=== PATIENT | male | born 1965 | race Caucasian/White ===

== ENCOUNTER 2016-06-10 10:49 | Day surgery (SDC) | payer BC ==
[2016-06-05 14:56] VITALS: BMI 32.1
[~2016-06-10 10:49] MED LIST: LACTATED RINGERS 1,000 ML IV SCH; LIDOCAINE 1% 20 ML VIAL (10MG/ML) FOR IV START INTRADERMA PRN
[2016-06-10 11:07] VITALS: RESP 16; TEMP 97.8
[2016-06-10] MEDS ORDERED: LIDOCAINE 1% INJ 10MG/ML (20 ML MDV) ONE (11:24)
[2016-06-10] MEDS ORDERED: PROPOFOL 10 MG/ML 20 ML VIAL IV ONE (11:24)
[2016-06-10] MEDS ORDERED: GLUCAGON 1 MG/ML VIAL ONE (11:24)
--- NOTE | 2016-06-10 11:33 | P.GSHP ---
History of Present Illness H&P Date: 06/10/16 Chief Complaint: Screening colonoscopy This a 51-year-old male referred from Dr. Haney. Patient rents today for screening colonoscopy. He denies a significant placed. He's never had a colonoscopy before. Patient is a known history of hemorrhoids. Past Medical History Past Medical History: Hyperlipidemia Additional Past Medical History / Comment(s): TREMORS, HX OF KIDNEY STONE. History of Any Multi-Drug Resistant Organisms: None Reported Past Surgical History: Back Surgery, Tonsillectomy Additional Past Surgical History / Comment(s): TONSILLS (CHILD), BACK SURGERY ( 2007), DENTAL WORK. Past Anesthesia/Blood Transfusion Reactions: No Reported Reaction, Motion Sickness Past Psychological History: No Psychological Hx Reported Smoking Status: Current every day smoker Past Alcohol Use History: Rare Additional Past Alcohol Use History / Comment(s): SMOKES 1PPD, SMOKING FOR 35 YRS. Past Drug Use History: None Reported - Past Family History Mother Family Medical History: No Reported History Medications and Allergies Home Medications Medication Instructions Recorded Confirmed Type Atorvastatin Calcium [Lipitor] 10 mg PO HS 06/05/16 06/10/16 History Krill Oil 700 mg PO DAILY 06/05/16 06/10/16 History Propranolol HCl [Propranolol HCl 60 mg PO BID 06/05/16 06/10/16 History ER] Allergies Allergy/AdvReac Type Severity Reaction Status Date / Time ibuprofen [From Motrin] AdvReac Severe Abdominal Verified 06/05/16 14:49 Pain Surgical - Exam Vital Signs Temp Pulse Resp BP Pulse Ox 97.8 F 70 16 140/79 100 06/10/16 11:02 06/10/16 11:02 06/10/16 11:02 06/10/16 11:02 06/10/16 11:02 - General well developed, well nourished - Eyes PERRL - ENT normal pinna - Neck no masses - Respiratory normal expansion - Cardiovascular Rhythm: regular - Abdomen Abdomen: soft, non tender Assessment and Plan Plan: We'll perform screening colonoscopy.
--- NOTE | 2016-06-10 12:09 | P.OP ---
Date of Procedure: 06/10/16 Preoperative Diagnosis: Screening colonoscopy Postoperative Diagnosis: Rectal polyp Sigmoid colon polyp Diverticulosis Procedure(s) Performed: Colonoscopy Anesthesia: MAC Surgeon: Ash Asencio Pathology: other (Colon polyp, rectal polyp) Condition: stable Disposition: PACU Description of Procedure: The patient's placed on the endoscopy table in the lateral position. He received IV sedation. Digital rectal exam was performed which revealed no abnormalities. The prostate was symmetric without nodules. The flexible colonoscope was then placed patient anus passed throughout the entire colon. The ileocecal valve visualized. There is scattered diverticula seen throughout the colon. The descending and transverse colon was examined there no polyps or tumors seen there a few scattered diverticula. In the descending colon was a few scattered diverticula. No polyps seen. The sigmoid colon there was a peduncular polyp through the snare. There was another polyp which was removed with the snare and forcep. In the rectum there was another polyp seen this removed with the snare and forcep. Scope was withdrawn for patient.
--- NOTE | 2016-06-10 12:16 | P.GSHP ---
History of Present Illness H&P Date: 06/10/16 Chief Complaint: GERD This a 51-year-old male from Dr. Mckeon. Patient has history of GERD with reflux esophagitis and Gonzalez's esophagus. Patient presents today for EGD. He 's had complaints of reflux. The patient currently sleeps in the upright position. - Constitutional Constitutional: Reports as per HPI Past Medical History Past Medical History: Hyperlipidemia Additional Past Medical History / Comment(s): TREMORS, HX OF KIDNEY STONE. History of Any Multi-Drug Resistant Organisms: None Reported Past Surgical History: Back Surgery, Tonsillectomy Additional Past Surgical History / Comment(s): TONSILLS (CHILD), BACK SURGERY ( 2007), DENTAL WORK. Past Anesthesia/Blood Transfusion Reactions: No Reported Reaction, Motion Sickness Past Psychological History: No Psychological Hx Reported Smoking Status: Current every day smoker Past Alcohol Use History: Rare Additional Past Alcohol Use History / Comment(s): SMOKES 1PPD, SMOKING FOR 35 YRS. Past Drug Use History: None Reported - Past Family History Mother Family Medical History: No Reported History Medications and Allergies Home Medications Medication Instructions Recorded Confirmed Type Atorvastatin Calcium [Lipitor] 10 mg PO HS 06/05/16 06/10/16 History Krill Oil 700 mg PO DAILY 06/05/16 06/10/16 History Propranolol HCl [Propranolol HCl 60 mg PO BID 06/05/16 06/10/16 History ER] Allergies Allergy/AdvReac Type Severity Reaction Status Date / Time ibuprofen [From Motrin] AdvReac Severe Abdominal Verified 06/05/16 14:49 Pain Surgical - Exam Vital Signs Temp Pulse Resp BP Pulse Ox 97.8 F 70 16 140/79 100 06/10/16 11:02 06/10/16 11:02 06/10/16 11:02 06/10/16 11:02 06/10/16 11:02 - General well developed - Eyes PERRL - ENT normal pinna - Neck no masses - Respiratory normal expansion - Cardiovascular Rhythm: regular - Abdomen Abdomen: soft, non tender Assessment and Plan Plan: GERD. We'll perform EGD.
[2016-06-10 12:25] VITALS: BP 113/74; PULSE 67
== END 2016-06-10 12:52 | disposition home or self-care (01) ==
LOC: ORWHC2ENDO 10:49
PROVIDERS: ATTEND Surgery
DX: Z12.11 Encounter for screening for malignant neoplasm of colon (principal); K63.5 Polyp of colon; K62.1 Rectal polyp; K57.30 Diverticulosis of large intestine without perforation or abscess without bleeding; E78.5 Hyperlipidemia, unspecified; F17.200 Nicotine dependence, unspecified, uncomplicated; Z88.6 Allergy status to analgesic agent
CPT/HCPCS: 88305; 45385; J1610; J2001; J2704; 45380; 99153

== ENCOUNTER 2016-12-23 08:51 | Day surgery (SDC) | payer BC ==
[2016-12-18 14:18] VITALS: BMI 32.8
[2016-12-23 09:12] VITALS: RESP 16; TEMP 97.9
[2016-12-23] MEDS ORDERED: PROPOFOL 10 MG/ML 20 ML VIAL IV ONE (10:37)
--- NOTE | 2016-12-23 10:56 | P.GSHP ---
History of Present Illness H&P Date: 12/23/16 Chief Complaint: History of colon polyps, rectal bleeding This a 51-year-old male who has had history of colon polyps. He's had some mild rectal bleeding. He presents today for colonoscopy. Past Medical History Past Medical History: Hyperlipidemia Additional Past Medical History / Comment(s): TREMORS, HX OF KIDNEY STONE, HX OF COLONOSCOPY WITH POLYP. History of Any Multi-Drug Resistant Organisms: None Reported Past Surgical History: Back Surgery, Tonsillectomy Additional Past Surgical History / Comment(s): TONSILLS (CHILD), BACK SURGERY, DENTAL WORK. Past Anesthesia/Blood Transfusion Reactions: No Reported Reaction Past Psychological History: No Psychological Hx Reported Smoking Status: Current every day smoker Past Alcohol Use History: Rare Additional Past Alcohol Use History / Comment(s): SMOKES 1PPD, SMOKING FOR 35 YRS. Past Drug Use History: None Reported - Past Family History Mother Family Medical History: No Reported History Medications and Allergies Home Medications Medication Instructions Recorded Confirmed Type Propranolol HCl [Propranolol HCl 60 mg PO DAILY 06/05/16 12/23/16 History ER] Krill Oil (Unknown Dose) 1 tab PO DAILY 12/18/16 12/23/16 History Allergies Allergy/AdvReac Type Severity Reaction Status Date / Time ibuprofen [From Motrin] AdvReac Severe Abdominal Verified 12/23/16 09:12 Pain Surgical - Exam Vital Signs Temp Pulse Resp BP Pulse Ox 97.9 F 73 16 129/83 95 12/23/16 09:11 12/23/16 09:11 12/23/16 09:11 12/23/16 09:11 12/23/16 09:11 - General well developed, no distress - Eyes PERRL - ENT normal pinna - Neck no masses - Respiratory normal expansion - Cardiovascular Rhythm: regular - Abdomen Abdomen: soft, non tender Assessment and Plan Plan: We'll perform colonoscopy
--- NOTE | 2016-12-23 11:07 | P.OP ---
Date of Procedure: 12/23/16 Preoperative Diagnosis: History of colon polyps GI bleed Postoperative Diagnosis: Mild diverticulosis Internal hemorrhoids Procedure(s) Performed: Colonoscopy Implants: Anesthesia: MAC Surgeon: Ash Asencio Pathology: none sent Condition: stable Disposition: PACU Indications for Procedure: Operative Findings: Description of Procedure: The patient was placed on the endoscopy table in the lateral position. He received IV sedation. Digital rectal exam was performed which revealed a few internal hemorrhoids. Flexible colonoscope was then placed patient anus passed throughout the entire colon. The ileocecal valve was visualized. The cecum, ascending and transverse colon appeared normal. In the descending; was a few scattered diverticuli. There no polyps or tumors seen. Scope was then brought back the rectum this appeared normal. Scope was withdrawn for patient.
[2016-12-23 11:37] VITALS: BP 126/80; PULSE 68
== END 2016-12-23 11:47 | disposition home or self-care (01) ==
LOC: ORWHC2ENDO 08:51
PROVIDERS: ATTEND Surgery
DX: K57.30 Diverticulosis of large intestine without perforation or abscess without bleeding (principal); K64.8 Other hemorrhoids; Z86.010 Personal history of colon polyps; F17.200 Nicotine dependence, unspecified, uncomplicated; R25.1 Tremor, unspecified; Z79.899 Other long term (current) drug therapy; Z88.6 Allergy status to analgesic agent
CPT/HCPCS: 45378; J2704

== ENCOUNTER 2023-10-16 08:20 | Day surgery (SDC) | payer OTHER ==
[2023-10-15 08:57] VITALS: BMI 29.2
[~2023-10-16 08:20] MED LIST changes: +LIDOCAINE 1% (10MG/ML) FOR IV START INTRADERMA PRN; -LIDOCAINE 1% 20 ML VIAL (10MG/ML) FOR IV START INTRADERMA PRN
[2023-10-16] MEDS: LACTATED RINGERS 1,000 ML IV ONE ×2 (09:12→09:41)
[2023-10-16 09:18] VITALS: TEMP 97.1
[2023-10-16] MEDS ORDERED: PROPOFOL 10 MG/ML 20 ML VIAL IV ONE (09:27)
--- NOTE | 2023-10-16 09:32 | P.GSHP ---
History of Present Illness H&P Date: 10/16/23 Chief Complaint: screening colonoscopy this is a 4-year-old male presents today for screening colonoscopy. Patient denies a significant GI complaints. Past Medical History Past Medical History: Hyperlipidemia Additional Past Medical History / Comment(s): TREMORS, HX OF KIDNEY STONE, HX OF COLONOSCOPY WITH POLYP. Takes Propranolol for sweating. History of Any Multi-Drug Resistant Organisms: None Reported Past Surgical History: Back Surgery, Tonsillectomy Additional Past Surgical History / Comment(s): BACK SURGERY, DENTAL WORK, He morrhoidectomy Past Anesthesia/Blood Transfusion Reactions: No Reported Reaction Smoking Status: Current every day smoker - Past Family History Mother Family Medical History: No Reported History Additional Family Medical History / Comment(s): Grandmother history of Black Lung Medications and Allergies Home Medications Medication Instructions Recorded Confirmed Type Propranolol HCl [Propranolol HCl 60 mg PO DAILY 06/05/16 10/15/23 History ER] Krill Oil (Unknown Dose) 1 tab PO DAILY 12/18/16 10/15/23 History Allergies Allergy/AdvReac Type Severity Reaction Status Date / Time ibuprofen [From Motrin] AdvReac Severe Abdominal Verified 10/16/23 08:47 Pain Surgical - Exam Vital Signs Temp Pulse Resp BP Pulse Ox 97.1 F L 67 20 148/73 99 10/16/23 08:48 10/16/23 08:48 10/16/23 08:48 10/16/23 08:48 10/16/23 08:48 - General well developed, well nourished, no distress - Eyes PERRL, normal ocular movement - ENT normal pinna - Neck no masses - Respiratory normal expansion - Cardiovascular Rhythm: regular - Abdomen Abdomen: soft, non tender Assessment and Plan Assessment: we'll perform screening colonoscopy.
--- NOTE | 2023-10-16 09:41 | P.OP ---
Date of Procedure: 10/16/23 Preoperative Diagnosis: screening colonoscopy Postoperative Diagnosis: mild diverticulosis Procedure(s) Performed: endoscopy Anesthesia: MAC Surgeon: Ash Asencio Pathology: none sent Condition: stable Disposition: PACU Description of Procedure: the patient's placed on the endoscopy table in the lateral position. He received IV sedation. Digital rectal exam was performed. This revealed no eabnormalities.d. The flexible colonoscope was then placed patient anus passed throughout the entire colon. The ileocecal valve was visualized. The cecum, ascending and transverse colon appeared normal. In the descending; there is mild diverticular changes. Scope was then brought back the rectum this appeared normal. Scope withdrawn for patient.
[2023-10-16 10:14] VITALS: BP 114/71; PULSE 57; RESP 14
== END 2023-10-16 10:11 | disposition home or self-care (01) ==
LOC: ORWHC2ENDO 08:20
PROVIDERS: ATTEND Surgery
DX: Z12.11 Encounter for screening for malignant neoplasm of colon (principal); K57.30 Diverticulosis of large intestine without perforation or abscess without bleeding; E78.5 Hyperlipidemia, unspecified; F17.200 Nicotine dependence, unspecified, uncomplicated; Z90.89 Acquired absence of other organs; Z88.6 Allergy status to analgesic agent; Z79.899 Other long term (current) drug therapy
CPT/HCPCS: 45378; J2704